=== PATIENT | male | born 1945 | race Caucasian/White ===

== ENCOUNTER 2021-01-21 15:57 | Emergency (ER) | payer MEDICARE ==
[~2021-01-21] VITALS: Ht 182.9 cm; Wt 150.0 kg
[2021-01-21 16:58] VITALS: BP 113/74; Ht 182.9 cm; Wt 150.0 kg
[2021-01-21 17:33] LABS: APTT 30.3 SECONDS (22.8-39.4); INR 1.18 (0.85-1.17); PROTIME 13.9 SECONDS (11.6-15.0)
[2021-01-21 17:34] LABS: ANION GAP 8.6 mmol/L (8-16); CALCIUM 9.8 mg/dL (8.5-10.1); CARBON DIOXIDE 28.7 mmol/L (21.0-32.0); CREATININE - SERUM 1.9 mg/dL (0.6-1.3); POTASSIUM - SERUM 4.3 mmol/L (3.5-5.1)
[2021-01-21 17:48] LABS: ALBUMIN 3.2 g/dL (3.4-5.0); BILIRUBIN - TOTAL 0.48 mg/dL (0.2-1.3); MAGNESIUM - SERUM 2.4 mg/dL (1.8-2.4); PROTEIN - SERUM 6.1 g/dL (6.4-8.2); TROPONIN-I 0.043 ng/mL (0.000-0.060)
[2021-01-21 18:02] LABS: BASOPHILS 0.6 % (0-2); EOSINOPHILS 2.1 % (0-7); HEMATOCRIT 32.3 % (42.0-54.0); HEMOGLOBIN 10.4 g/dL (13.5-17.5); LYMPHOCYTES 7.7 % (15-50); MCH 30.6 pg (26.0-34.0); MCHC 32.3 g/dL (31.0-37.0); MCV 94.5 fL (80.0-100.0); MEAN PLATELET VOLUME 6.8 fL (7.4-10.4); MONOCYTES 8.8 % (2-11); NEUTROPHILS 80.8 % (40-80); PLATELET COUNT 309 10x3/uL (130-400); RBC 3.41 10x6/uL (4.20-6.10); RDW 16.2 % (11.5-14.5)
== END 2021-01-21 20:27 | disposition left against medical advice (07) ==
LOC: D.ER 15:57
PROVIDERS: Emergency Medicine
DX: R60.0 Localized edema (principal); D64.9 Anemia, unspecified; I50.9 Heart failure, unspecified; R79.89 Other specified abnormal findings of blood chemistry; N18.9 Chronic kidney disease, unspecified; E11.22 Type 2 diabetes mellitus with diabetic chronic kidney disease; I13.0 Hypertensive heart and chronic kidney disease with heart failure and stage 1 through stage 4 chronic kidney disease, or unspecified chronic kidney disease